=== PATIENT | female | born 1965 | race Caucasian/White ===

== ENCOUNTER 2017-02-05 09:22 | Emergency (ER) | payer OTHER, BC ==
[~2017-02-05] VITALS: Ht 180.3 cm; Wt 113.8 kg
[2017-02-05 09:26] VITALS: BP 140/79; PULSE 80; RESP 16; TEMP 98.2; O2SAT 98; Ht 180.3 cm; Wt 113.8 kg
--- NOTE | 2017-02-05 09:32 | NUR ---
DR WEST IN
[2017-02-05] MEDS ORDERED: NO ROUTINE MEDS (09:38)
--- NOTE | 2017-02-05 09:40 | ERPDOC ---
Departure Disposition Decision Date: Feb 05, 2017 Disposition Decision Time: 09:39 Disposition: 01 DISCHARGED HOME, SELF-CARE Impression Impression Impression: Primary Impression: Laceration of finger of right hand Encounter type: initial encounter Qualified Codes: S61.219A - Laceration without foreign body of unspecified finger without damage to nail, initial encounter Severity: Mild Condition: Improved Seen By: Physician only Referrals: GIOVANNI IBARRA DO (Family) 1 Week As needed Patient Instructions: Finger Laceration (ED), Skin Adhesive Care (ED) Problems/Meds/Labs Reviewed?: Yes Medications reviewed and manag: Yes Follow up care ordered?: Yes Mental Status: Alert, Oriented HPI - Skin General General Chief Complaint: Laceration Stated Complaint: LAC ON R PINKY Time Seen by Provider: 09:29 Source: patient (Patient presents to the ER with an approx 5mm laceration to the 5th digit of her right hand. Patient apparently caught the finger in a closing door. ) Exam Limitations: no limitations HPI - Skin General Occurred At: home Onset: Changing over time Duration: 1-3 hrs Pain Scale: Now: 0/10, Worst: Unable to Rate Severity: mild Location: hands Possible Cause: other Modifying Factors: IMPROVES WITH: other (Direct pressure) Associated Symptoms: DENIES: denies symptoms Hx of Similar Symptoms: No Allergies: Coded Allergies: No Known Allergies (Unverified , 02/05/17) Past History Past Medical History Pt denies signifigant PMH Hx Echocardiogram: No Surgical History Denies Surgeries Family History Family History: Negative Social History Smoking Status: Former smoker Does patient use chewing tobac: No Second Hand Exposure: No Substance Use Type: does not use Alcohol Intake: none Housing: house Service: No Current Occupational Status: employed Occupational Hazard: No Advance Directives: Yes Full Code Record Review Pertinent history updated: Yes Review of Systems Constitutional Constitutional: DENIES: chills, fever Eyes Lids/Accessories: DENIES: erythema, swelling ENMT Ears: DENIES: erythema Balance: DENIES: ataxia, vertigo Sinuses: DENIES: congestion, rhinorrhea Mouth/Throat: DENIES: sore throat Cardiovascular Cardiac: DENIES: chest pain, dyspnea on exertion, orthopnea Rhythm/Rate: DENIES: tachycardia Pulmonary Respiratory: DENIES: cough, dyspnea, sputum GI Upper Abdomen: DENIES: nausea, pain, vomiting Lower Abdomen: DENIES: constipation, diarrhea, pain General: DENIES: dysuria Musculoskeletal General: DENIES: cramps, pain, weakness Integumentary Skin: see HPI, DENIES: color change, itching, rash Neurological General: DENIES: ataxia, change in strength, headache, numbness, poor coordination, seizures, syncope, vertigo, weakness Psychiatric Psychiatric: DENIES: anxiety, depression, nervousness Hematologic/Lymphatic Hematologic/Lymphatic: DENIES: anemia Allergic/Immunological Allergic/Immunoligical: DENIES: sneezing All other Systems All Other Systems: Reviewed and Negative Physical Exam General General Nourishment: well nourished, well developed, appears stated age, no acute distress, adult General Body Habitus: well groomed Vitals and Pain First Documented Vital Signs Date Time Temp Pulse Resp B/P Pulse Ox O2 Delivery O2 Flow Rate FiO2 02/05/17 09:26 98.2 80 16 140/79 98 Room Air Weight: Kilograms: 113.800 Height (feet): 5 Height (inches): 11.00 Triage Pain Scale: RN VS reviewed by Provider: Yes Eyes (brief) Eyes Brief: found: EOMI, PERRL ENMT (brief) ENMT Brief: FOUND: mucosa moist Neck (brief) Neck: FOUND: trachea midline, NOT FOUND: tracheal deviation Respiratory (brief) Respiratory: FOUND: clear all viera, equal bilaterally Cardiovascular (brief) Cardiac: FOUND: regular rate, regular rhythm Capillary Refill: <2 sec Pulses: equal, strong Musculoskeletal (brief) Musculoskeletal Brief: NOT FOUND: spasm, tenderness Integumentary (brief) Integumentary Brief: FOUND: other (Refer to HPI, Flexion and extension intact) , pink, warm Neurologic (brief) Neurological Brief: FOUND: CN w/o gross def to obs, gait w/o gross def to obs, motor-no gross deficits, sensory-no gross deficits, NOT FOUND: ataxia Psychiatric (brief) Psychiatric Brief: FOUND: alert, attentive, normal affect, oriented Differential Diagnoses Considering: Laceration Procedures Procedures Performed Procedures Performed: Laceration Repair Laceration/Wound Repair Wound/Laceration Repair : Wound Location: upper extremity (5th digit right hand) Wound Length (cm): 0.5 Depth, Shape: superficial Explored: clean Irrigated: saline Prep: chlorasept Wound Debrided: minimal Wound Revision?: No Repaired With: Dermabond Layer Closure?: No Extensor Tendon Repair?: No Sterile Dressing Applied?: Yes Splint Applied?: No Sling Applied?: No Progress Progress Progress Wound has reapproximated I discussed sutures vs Dermabond Patient requesting Dermabond LYNETTE WEST DO Feb 05, 2017 09:40
--- NOTE | 2017-02-05 09:40 | NUR ---
DERMABOND PLACED BY DR WEST
--- NOTE | 2017-02-05 09:45 | NUR ---
DISMISSED DISCHARGED AMB.
== END 2017-02-05 09:45 | disposition home or self-care (01) ==
LOC: ED 09:22
DX: S61.216A Laceration without foreign body of right little finger without damage to nail, initial encounter (principal); W23.0XXA Caught, crushed, jammed, or pinched between moving objects, initial encounter; Y93.9 Activity, unspecified; Y92.9 Unspecified place or not applicable; Y99.0 Civilian activity done for income or pay